=== PATIENT | male | born 1955 | race Caucasian/White ===

== ENCOUNTER 2016-09-24 12:43 | Emergency (ER) | payer MEDICAID ==
[~2016-09-24] VITALS: Ht 180.3 cm; Wt 75.4 kg
[2016-09-24 12:45] VITALS: BP 159/95
[2016-09-24] MEDS ORDERED: CEFTRIAXONE 1,000 MG IM ONE (14:30)
== END 2016-09-24 14:53 | disposition left against medical advice (07) ==
LOC: ED 14:47
DX: N30.00 Acute cystitis without hematuria (principal); I10 Essential (primary) hypertension; Z86.73 Personal history of transient ischemic attack (TIA), and cerebral infarction without residual deficits
CPT/HCPCS: 81001; 87086; 99284

== ENCOUNTER 2017-03-20 10:45 | Emergency (ER) | payer MEDICAID, OTHER ==
[~2017-03-20] VITALS: Ht 177.8 cm; Wt 74.0 kg
[2017-03-20 12:23] LABS: HEMATOCRIT 44.2 % (39.2-51.8); WHITE BLOOD COUNT 9.4 x10^3/uL (3.4-10)
[2017-03-20 12:35] LABS: BLOOD UREA NITROGEN 22 mg/dL (7-18)
[2017-03-20 13:20] VITALS: BP 142/63
== END 2017-03-20 13:23 | disposition home or self-care (01) ==
LOC: ED 13:17
DX: N30.01 Acute cystitis with hematuria (principal); I10 Essential (primary) hypertension; Z86.73 Personal history of transient ischemic attack (TIA), and cerebral infarction without residual deficits; F17.200 Nicotine dependence, unspecified, uncomplicated
CPT/HCPCS: 36415; 80048; 81001; 85025; 87086; 99284